=== PATIENT | male | born 1955 | race Caucasian/White ===

== ENCOUNTER 2018-07-13 10:00 | Outpatient (CLI) | payer OTHER ==
--- NOTE | 2018-07-13 11:18 | RAD ---
CHEST TWO VIEWS: INDICATIONS: Dyspnea. COMPARISON: None. FINDINGS: There is mild cardiomegaly. The pulmonary vasculature is within normal limits. There are vascular c alcifications involving the aortic arch. No acute osseous abnormality is noted. IMPRESSION: Mild cardiomegaly without evidence of cardiac decompensation. POS: ABN
== END 2018-07-13 10:01 | disposition home or self-care (01) ==
LOC: RAD 10:00
PROVIDERS: ATTEND Internal Medicine Pulmonary Disease
DX: R06.00 Dyspnea, unspecified (principal); I51.7 Cardiomegaly
CPT/HCPCS: 71046

== ENCOUNTER 2019-01-20 20:30 | Outpatient (CLI) | payer MEDICARE, BC | END 2019-01-20 20:31 | disposition home or self-care (01) | LOC: SLEEPLAB 20:30 | PROVIDERS: ATTEND Internal Medicine Pulmonary Disease | DX: G47.33 Obstructive sleep apnea (adult) (pediatric) (principal); R53.83 Other fatigue; R06.83 Snoring; G47.10 Hypersomnia, unspecified; I10 Essential (primary) hypertension; I25.10 Atherosclerotic heart disease of native coronary artery without angina pectoris; J45.909 Unspecified asthma, uncomplicated; G47.00 Insomnia, unspecified; G47.31 Primary central sleep apnea; G47.61 Periodic limb movement disorder; E66.9 Obesity, unspecified; Z68.31 Body mass index [BMI] 31.0-31.9, adult | CPT/HCPCS: 95811 ==

== ENCOUNTER 2019-02-28 20:30 | Outpatient (CLI) | payer MEDICARE, BC | END 2019-02-28 20:31 | disposition home or self-care (01) | LOC: SLEEPLAB 20:30 | PROVIDERS: ATTEND Internal Medicine Pulmonary Disease | DX: G47.33 Obstructive sleep apnea (adult) (pediatric) (principal); R53.83 Other fatigue; E66.9 Obesity, unspecified; R06.3 Periodic breathing; G47.31 Primary central sleep apnea | CPT/HCPCS: 95811 ==

== ENCOUNTER 2021-07-15 13:02 | Outpatient (CLI) | payer MEDICARE, BC | END 2021-07-15 13:03 | disposition home or self-care (01) | LOC: RAD 13:02 | PROVIDERS: ATTEND Internal Medicine Critical Care Medicine | DX: R06.00 Dyspnea, unspecified (principal) | CPT/HCPCS: 71046 ==

== ENCOUNTER 2022-05-06 13:09 | Outpatient (CLI) | payer MEDICARE, BC | END 2022-05-06 13:10 | disposition home or self-care (01) | LOC: RAD 13:09 | PROVIDERS: ATTEND Internal Medicine Critical Care Medicine | DX: R06.00 Dyspnea, unspecified (principal) | CPT/HCPCS: 71046 ==

== ENCOUNTER 2023-10-15 06:29 | Day surgery (SDC) | payer MEDICARE, BC ==
[2023-10-14 12:59] VITALS: BMI 30.7
[~2023-10-15 06:29] MED LIST: EPINEPHrine 0.3 MG in Ophthalmic Irrigation Solution 500 ML IRR SCH
[2023-10-15] MEDS ORDERED: Cyclopentolate 0.5% Opth Drops 15 ML BOT ONE (06:57)
[2023-10-15] MEDS ORDERED: PHENYLephrine 2.5% Ophth Soln 15 ml Bottle ONE (06:57)
[2023-10-15] MEDS ORDERED: Midazolam HCl 2 mg/2 ml Vial ONE (07:09)
[2023-10-15] MEDS ORDERED: Lidocaine 1% PF 5 ML VIAL ONE ×2 (07:12→07:50)
[2023-10-15] MEDS ORDERED: PROPOFOL 20 ML ONE (07:12)
[2023-10-15] MEDS ORDERED: CEFAZOLIN 1 GM VIAL ONE (07:50)
[2023-10-15] MEDS ORDERED: Maxitrol 0.1% Opth Oint 3.5 GM TUBE ONE (07:50)
[2023-10-15] MEDS ORDERED: Bupivacaine 0.75% 10 ML VIAL ONE (07:50)
[2023-10-15] MEDS ORDERED: Dexamethasone 4 mg/ml Vial ONE ×2 (07:50→07:51)
[2023-10-15] MEDS ORDERED: Lidocaine 4% PF 5 ML AMP ONE (07:50)
== END 2023-10-15 08:53 | disposition home or self-care (01) ==
LOC: SDC 06:29
PROVIDERS: ATTEND Ophthalmology Retina Specialist
PROC: 08943ZZ Drainage of Right Vitreous, Percutaneous Approach (ICD-10-PCS; principal; 2023-10-15)
DX: H43.311 Vitreous membranes and strands, right eye (principal)
CPT/HCPCS: J0171; J0690; J1100; J2250; J2704; J3490

== ENCOUNTER 2024-09-05 13:57 | Outpatient (CLI) | payer MEDICARE, BC | END 2024-09-05 13:58 | disposition home or self-care (01) | LOC: RAD 13:57 | PROVIDERS: ATTEND Internal Medicine Critical Care Medicine | DX: R06.00 Dyspnea, unspecified (principal) | CPT/HCPCS: 71046 ==

== ENCOUNTER 2024-09-05 15:37 | Emergency (ER) | payer MEDICARE, BC ==
[2024-09-05] MEDS ORDERED: Ipratropium/Albuterol 3 ML NEB ONE (16:28)
[2024-09-05] MEDS ORDERED: methylPREDNISolone Sod Succ/PF 125 MG/2 ML VIAL ONE (16:28)
[2024-09-05 16:37] LABS: #Basophils 0.03 10x3/uL (0.0-0.2); %Basophils 0.3 % (0.0-1.0); %Eosinophils 0.6 % (0.0-10.0); %Lymphocytes 14.6 % (21.0-51.0); %Monocytes 15.8 % (0.0-10.0); %Neutrophils 68.5 % (42.0-75.0); Hematocrit 41.3 % (42.0-52.0); Hemoglobin 14.3 g/dL (14.0-18.0); Mean Corpuscular HGB CONC 34.6 g/dL (32.0-36.0); Mean Corpuscular Hemoglobin 31.6 pg (27.0-31.0); Mean Corpuscular Volume 91.2 fL (78.0-98.0); Mean Platelet Volume 9.4 fL (7.4-10.4); Platelet Count 167 10x3/uL (130-400); RBC Distribution Width 13.2 % (11.5-14.5); Red Blood Cell (RBC) Count 4.53 mill/uL (4.70-6.10)
[2024-09-05 17:06] LABS: Troponin I Less than 0.010 ng/mL (< 0.028)
[2024-09-05 17:10] LABS: ALT (SGPT) 38 U/L (Less than 45); AST (SGOT) 42 U/L (11-34); Albumin 3.9 g/dL (3.1-4.5); Alkaline Phosphatase 64 U/L (40-110); Anion Gap 13 mmol/L (10-20); BUN (Urea Nitrogen) 15 mg/dL (8.4-25.7); Bilirubin, Total 0.8 mg/dL (0.3-1.2); Calc. Creatinine Clearance 0 mL/min (70-130); Calcium 9.3 mg/dL (7.8-10.44); Carbon Dioxide 26 mmol/L (23-31); Chloride 102 mmol/L (98-107); Estimated GFR 60; Globulin 3.1 g/dL (2.4-3.5); Glucose 105 mg/dL (80-115); Potassium 4.2 mmol/L (3.5-5.1); Sodium 137 mmol/L (136-145)
[2024-09-05] MEDS ORDERED: Azithromycin 500 MG VIAL ONE (17:34)
== END 2024-09-05 20:55 | disposition home or self-care (01) ==
LOC: ERS 15:37
DX: J45.901 Unspecified asthma with (acute) exacerbation (principal); J22 Unspecified acute lower respiratory infection
CPT/HCPCS: 71046; 80053; 83880; 84484; 85025; 87428; 93005; 96374; 96375; 99284; J0456; J2919; J7620